=== PATIENT | male | born 1965 | race Caucasian/White ===

== ENCOUNTER 2021-10-27 12:58 | Day surgery (SDC) | payer OTHER ==
[~2021-10-27] VITALS: Ht 177.8 cm; Wt 73.0 kg
[~2021-10-27 12:58] MED LIST: KEFLEX500 MG PO; NORCO 5-325 TA1 EACH PO
--- NOTE | 2021-10-27 16:16 | NUR ---
10/27/21 1616 Carly Rosa 1604 PT ARRIVED TO PACU ON 3L VIA NC. BP DECREASED AND FLUIDS INCREASED. PT ASLEEP AND WAKES TO VERBAL STIMULI. 1608 MD AT BEDSIDE TALKING TO PT. 1615 O2 TURNED OFF.
--- NOTE | 2021-10-28 12:06 | OR ---
[facility] [address], [place] [address] Signed DATE OF OPERATION: 10/27/2021 SURGEON: Rakel Mcdonald MD PREOPERATIVE DIAGNOSIS: Colon screening. POSTOPERATIVE DIAGNOSIS: Normal colon except for mild proctitis probably clinically insignificant. PROCEDURE: Total colonoscopy to cecum with biopsy of rectum. ANESTHESIA: Intravenous sedation; fentanyl 150 mcg, Versed 6 mg. INDICATION: This 56-year-old white man is a patient Dr. Faustin and is referred for screening colonoscopy. He has no symptoms of bleeding, diarrhea, or constipation and no family history of colon cancer. His original colonoscopy was cancelled on the basis of positive COVID test, which is largely asymptomatic. He is now to undergo colonoscopy. He understands the risks of bleeding, infection, and perforation. FINDINGS: The prep was quite excellent. Complete colonoscopy was undertaken to the cecum without question. He had no sign of polyps or diverticula, but did have mild inflammatory change of the rectum, probably bowel prep or possibly scope trauma related. A biopsy was obtained nevertheless. PROCEDURE IN DETAIL: The patient was brought to the endoscopy suite and placed in lateral decubitus position, given intravenous sedation to the point of slurred speech and nystagmus. Digital rectal examination was normal including normal prostate. An Olympus video colonoscope was passed in the rectum and manipulated throughout the colon ultimately intubating the cecum itself. The ileocecal valve and appendiceal orifice were normal. Scope was withdrawn from that point and careful examination upon withdrawal of scope showed no sign of polyps, diverticular formation, colitis, or cancer. There was mild inflammatory change of the rectum, most likely clinically insignificant. Biopsies obtained nevertheless. Retroflexed view showed no sign of other problem. The scope was removed. The patient was taken to the recovery room in good condition. Electronically Signed By: RAKEL MCDONALD MD 10/28/21 1206 PATIENT NAME: GINO COMBS OPERATIVE REPORT DATE OF : 67 REPORT #: [id number] PHYSICIAN: RAKEL MCDONALD MD PCP: ARVIND FAUSTIN MD REPORT IS CONFIDENTIAL AND NOT TO BE RELEASED WITHOUT AUTHORIZATION [facility] [address], [place] [address] Signed CONCLUDING DIAGNOSIS: Mild proctitis, clinically insignificant, otherwise normal. PLAN: Recommend a repeat colonoscopy in 10 years, sooner if clinically indicated. He will return to the ongoing care of Dr. Faustin. Rakel Mcdonald MD JM/MODL /[id number] cc: Arvind Faustin MD Copies: ~ Electronically Signed By: RAKEL MCDONALD MD 10/28/21 1206 PATIENT NAME: GINO COMBS OPERATIVE REPORT DATE OF : 67 REPORT #: [id number] PHYSICIAN: RAKEL MCDONALD MD PCP: ARVIND FAUSTIN MD REPORT IS CONFIDENTIAL AND NOT TO BE RELEASED WITHOUT AUTHORIZATION
--- NOTE | 2021-10-29 12:52 | PATH ---
[facility] [address] [facility] [place] [address] Signed SPECIMEN(S): A RECTUM SPECIMEN SOURCE: A. RECTUM CLINICAL HISTORY: Rectal inflammation. Colonoscopy. FINAL PATHOLOGIC DIAGNOSIS: Rectum, biopsy: - Focal mild active proctitis, see Comment. - Negative for granulomas, dysplasia, or malignancy. COMMENT: No crypt architectural distortion, viral cytopathic changes, or infectious organisms are seen. The finding is nonspecific and the differential diagnosis includes, but is not limited to, medication injury (such as NSAIDs), infections, and bowel-preparation. While an emerging inflammatory bowel disease cannot be entirely excluded, it is not favored. Clinical correlation is required. NAL:cml:C2NR MICROSCOPIC EXAMINATION: Histologic sections of all submitted blocks are examined by light microscopy. These findings, together with the gross examination, support the pathologic diagnosis. GROSS DESCRIPTION: The specimen, labeled "LK, rectum biopsy," is received in formalin and consists of one gomez soft tissue fragment that measures 0.2 cm in greatest dimension. The specimen is entirely submitted in cassette (A1). JS (under the direct supervision of a pathologist) The Gross Description was prepared using a voice recognition system. The report was reviewed for accuracy; however, sound-alike word errors, addition and/or deletions may occur. If there is any question about this report, please contact Client Services. PERFORMING LABORATORY: The technical component was performed by [facility], [address] [place] [id number] (CLIA# [id number]). Professional interpretation was PATIENT NAME: GINO COMBS PATHOLOGY DATE OF : 67 REPORT #: [id number] PHYSICIAN: CARLOS PATHOLOGY PCP: PATRICIA FAUSTIN MD REPORT IS CONFIDENTIAL AND NOT TO BE RELEASED WITHOUT AUTHORIZATION [facility] [address] [place], [place] [address] Signed performed by [facility], [address] [address] (CLIA# [id number]). Diagnostician: Iris Burleson MD Pathologist Electronically Signed 10/29/2021 Copies: ~ PATIENT NAME: GINO COMBS PATHOLOGY DATE OF : 67 REPORT #: [id number] PHYSICIAN: CARLOS PATHOLOGY PCP: PATRICIA FAUSTIN MD REPORT IS CONFIDENTIAL AND NOT TO BE RELEASED WITHOUT AUTHORIZATION
== END 2021-10-27 16:45 | disposition home or self-care (01) ==
LOC: OPS 12:58 → DS 12:58 → OPS 14:00 → DS 14:00 → OPS 16:45
PROVIDERS: ATTEND Surgery
PROC: 0DBP8ZX Excision of Rectum, Via Natural or Artificial Opening Endoscopic, Diagnostic (ICD-10-PCS; principal; 2021-10-27 14:00)
DX: Z12.11 Encounter for screening for malignant neoplasm of colon (principal); K62.89 Other specified diseases of anus and rectum
CPT/HCPCS: J2250; J3010; J7121